=== PATIENT | female | born 1985 | race Caucasian/White ===

== ENCOUNTER 2024-11-20 18:59 | Emergency (ER) | payer BC, SELFPAY ==
[2024-11-20] VITALS (8 sets, daily range): BP systolic 102–131; BP diastolic 75–88; PULSE 80–114; RESP 13–26; TEMP 37.1; O2SAT 95–100
--- NOTE | 2024-11-20 19:13 | ED.OVERDOSE ---
HPI - Overdose General Chief Complaint: Overdose Stated Complaint: overdose History of Present Illness HPI Narrative: 39-year-old female with no significant past medical history aside from hypothyroidism. She presents to the emergency department after ingesting approximately 30-40 mg of THC edibles. Patient has never used marijuana before or any other substances. Denies any alcohol intake. She states that she feels off and is visibly shaky. States that she was with family members and went to dinner before she had any the edible. Denies any drinking today. She was otherwise in her normal state of health. Denies any pain, shortness is mild nauseousness but no headache, abdominal pain, back pain. Denies chance of . Related Data Allergies Allergy/AdvReac Type Severity Reaction Status Date / Time No Known Allergies Allergy Verified 11/21/24 00:13 Review of Systems Review of Systems: As reviewed above in [facility] Social History Social History Substance use type: marijuana Exam Narrative: GENERAL: Anxious and tremulous but not any acute distress, awake and answering questions HEAD: [Normocephalic, atraumatic.] EYES: [PERRLA and EOMI.] ENT: Nares clear, no rhinorrhea or epistaxis. Mucous membranes moist. NECK: Supple. CHEST: [Clear to auscultation. No respiratory distress.] HEART: [Regular rate and rhythm]. No murmur heard. [Normal peripheral pulses.] ABDOMEN: [Soft, nondistended], [nontender], [No rigidity or guarding] EXTREMITIES: Normal range of motion. [No edema.] SKIN: Warm, dry, no rash. NEURO: [No focal deficits]. Alert and oriented [x3.] PSYCH: Anxious and tremulous Course Vital Signs Vital signs: Vital Signs Pulse Rate 114 H 11/20/24 18:57 Respiratory Rate 16 11/20/24 18:57 Pulse Oximetry 99 11/20/24 18:57 Oxygen Delivery Room Air 11/20/24 18:57 Temperature 36.9 C 11/21/24 01:14 Pulse Rate 85 11/21/24 01:14 Respiratory Rate 14 11/21/24 01:14 Blood Pressure 122/78 11/21/24 01:14 Pulse Oximetry 100 11/21/24 01:14 Oxygen Delivery Room Air 11/20/24 19:15 MDM - Overdose MDM Narrative Medical decision making narrative: 39-year-old female with history of hypothyroidism presenting to the emergency department after ingesting 30-40 mg of THC edible. She has never used marijuana type products before. No drinking today. Was otherwise in her normal state of health. She is anxious and tremulous but not any distress. Mildly tachycardic, no other vital concerns. Normal blood pressure, no fever, 99% on room air. Patient is awake and answering questions. She was given a fluid bolus and Zofran laboratory studies were obtained as well as urinalysis and drug screen, urine test. Patient will be monitored here for symptom improvement with symptomatic management as needed. Poison Control was contacted by nursing staff for this and there were no recommendations aside from checking a point care glucose and watchful waiting. Patient's laboratory studies show hemoconcentration with elevated platelets and white count without any signs of infection. Patient was given 2 L of fluid hydration and her vitals have normalized without any tachycardia. Electrolytes are unremarkable. Normal glucose. Normal LFTs. Normal TSH. Urinalysis with no or signs of infection or blood. UDS positive for cannabinoids. Alcohol, salicylates and Tylenol are negative. EKG reviewed shows sinus tachycardia with poor waveform. Patient was up and ambulatory to the bathroom and all her symptoms have significantly improved. Discussed with the patient and family that symptoms might still last for several hours based on the dose but there is no toxic ingestion here and she can be safely observed at home without any need for hospitalization. Patient and family comfortable with the plan and safely discharged home after brief observation for several hours here in the ED without issue. Medical Records Attestation: I reviewed the patient's medical records. Lab Data Attestation: I reviewed the patient's lab results. 11/20/24 19:20 11/20/24 19:19 Labs: Lab Results 11/20/24 11/20/24 11/20/24 Range/Units 19:19 19:20 19:22 WBC 12.0 H (4.5-10.0) K/mm3 RBC 4.74 (4.2-5.4) M/mm3 Hgb 11.4 L (12.0-15.0) g/dL Hct 38.0 (37.0-47.0) % MCV 80.2 (80-100) fl MCH 24.1 L (26-34) pg MCHC 30.0 L (32-36) g/dl RDW 15.1 H (11.5-14.5) % Plt Count 492 H (150-375) k/mm3 MPV 10.3 (7.4-10.4) fl Immature Gran % (Auto) 0.5 (0-0.5) % Neut % (Auto) 57.6 (45.5-73.1) % Lymph % (Auto) 31.0 (18.3-44.2) % Rolette % (Auto) 8.9 H (2.6-8.5) % Eos % (Auto) 1.5 (0-4.4) % Baso % (Auto) 0.5 (0.2-1.2) % Lymph # (Auto) 3.73 H (0.9-3.2) K/mm3 Rolette # (Auto) 1.1 H (0.1-0.6) K/mm3 Eos # (Auto) 0.2 (0-0.3) K/mm3 Baso # (Auto) 0.1 (0.0-0.1) K/mm3 Abs Immat Gran (auto) 0.06 H (0.00-0.031) K/mm3 Absolute Neuts (auto) 6.9 H (1.3-6.7) K/mm3 Absolute Nucleated RBC 0.000 (0.0-0.012) K/mm3 Nucleated RBC % 0.0 (0.0-0.2) % Sodium 138 (137-145) mmol/L Potassium 3.6 (3.4-5.0) mmol/L Chloride 104 (98-107) mmol/L Carbon Dioxide 23 (22-30) mmol/L Anion Gap 11 (4-12) mmol/L BUN 13 (7-17) mg/dL Creatinine 0.88 (0.7-1.0) mg/dL Estim Creat Clear Calc Not Reportable Estimated GFR > 60 (59 - ) Glucose 130 H (65-110) mg/dL Calcium 9.1 (8.4-10.2) mg/dL Total Bilirubin 0.2 (0.2-1.3) mg/dL AST 26 (14-36) U/L ALT 17 (6-35) U/L Alkaline Phosphatase 88 (38-126) U/L Total Protein 7.4 (6.3-8.2) g/dL Albumin 4.4 (3.5-5.1) g/dL TSH 0.519 (0.465-4.680) uIU/mL Urine Color (Yellow) Urine Appearance (Clear) Urine pH (5.0-9.0) Ur Specific [place] (1.001-1.035) Urine Protein (Negative) mg/dL Urine Glucose (UA) (Negative) mg/dL Urine Ketones (Negative) mg/dL Ur Blood (Man) (Negative) Urine Nitrate (Negative) Urine Bilirubin (Negative) Urine Urobilinogen (<2.0) mg/dL Add Ur Microanalysis Leukocyte Esterase Rfl (Negative) YAMEL/UL Urine RBC (0-2) /hpf Urine WBC (0-3) /hpf Ur Squamous Epith Cells (Few) /hpf Urine Bacteria /hpf Urine Casts POC Urine HCG, Qual Negative (Negative) Salicylates < 1.0 L (2-20) mg/dL Urine Opiates Screen (Negative) Urine Methadone Screen (Negative) Acetaminophen < 10 L (10-30) ug/mL Ur Barbiturates Screen (Negative) Ur Phencyclidine Scrn (Negative) Ur Amphetamine Screen (Negative) U Benzodiazepines Scrn (Negative) Urine Cocaine Screen (Negative) U Cannabinoids Screen (Negative) Ethyl Alcohol < 10 (<10) mg/dL 11/20/24 Range/Units 19:28 WBC (4.5-10.0) K/mm3 RBC (4.2-5.4) M/mm3 Hgb (12.0-15.0) g/dL Hct (37.0-47.0) % MCV (80-100) fl MCH (26-34) pg MCHC (32-36) g/dl RDW (11.5-14.5) % Plt Count (150-375) k/mm3 MPV (7.4-10.4) fl Immature Gran % (Auto) (0-0.5) % Neut % (Auto) (45.5-73.1) % Lymph % (Auto) (18.3-44.2) % Rolette % (Auto) (2.6-8.5) % Eos % (Auto) (0-4.4) % Baso % (Auto) (0.2-1.2) % Lymph # (Auto) (0.9-3.2) K/mm3 Rolette # (Auto) (0.1-0.6) K/mm3 Eos # (Auto) (0-0.3) K/mm3 Baso # (Auto) (0.0-0.1) K/mm3 Abs Immat Gran (auto) (0.00-0.031) K/mm3 Absolute Neuts (auto) (1.3-6.7) K/mm3 Absolute Nucleated RBC (0.0-0.012) K/mm3 Nucleated RBC % (0.0-0.2) % Sodium (137-145) mmol/L Potassium (3.4-5.0) mmol/L Chloride (98-107) mmol/L Carbon Dioxide (22-30) mmol/L Anion Gap (4-12) mmol/L BUN (7-17) mg/dL Creatinine (0.7-1.0) mg/dL Estim Creat Clear Calc Estimated GFR (59 - ) Glucose (65-110) mg/dL Calcium (8.4-10.2) mg/dL Total Bilirubin (0.2-1.3) mg/dL AST (14-36) U/L ALT (6-35) U/L Alkaline Phosphatase (38-126) U/L Total Protein (6.3-8.2) g/dL Albumin (3.5-5.1) g/dL TSH (0.465-4.680) uIU/mL Urine Color Yellow (Yellow) Urine Appearance Clear (Clear) Urine pH 5.5 (5.0-9.0) Ur Specific [place] 1.023 (1.001-1.035) Urine Protein Negative (Negative) mg/dL Urine Glucose (UA) Negative (Negative) mg/dL Urine Ketones Trace H (Negative) mg/dL Ur Blood (Man) Negative (Negative) Urine Nitrate Negative (Negative) Urine Bilirubin Negative (Negative) Urine Urobilinogen 1.0 (<2.0) mg/dL Add Ur Microanalysis Reviewed Leukocyte Esterase Rfl Negative (Negative) YAMEL/UL Urine RBC 0-2 (0-2) /hpf Urine WBC 0-5 (0-3) /hpf Ur Squamous Epith Cells Few (Few) /hpf Urine Bacteria None seen /hpf Urine Casts 0-2 POC Urine HCG, Qual (Negative) Salicylates (2-20) mg/dL Urine Opiates Screen Negative (Negative) Urine Methadone Screen Negative (Negative) Acetaminophen (10-30) ug/mL Ur Barbiturates Screen Negative (Negative) Ur Phencyclidine Scrn Negative (Negative) Ur Amphetamine Screen Negative (Negative) U Benzodiazepines Scrn Negative (Negative) Urine Cocaine Screen Negative (Negative) U Cannabinoids Screen Positive A (Negative) Ethyl Alcohol (<10) mg/dL Discharge Plan Discharge Clinical Impression: Cannabis intoxication Patient Disposition: Home Condition: Stable Instructions: Antibiotic Form Patient Language: Paraguayan Prescriptions: New ondansetron 4 mg tablet,disintegrating 4 mg PO Q8H PRN (Reason: nausea and vomiting) Qty: 10 0RF ondansetron 4 mg tablet,disintegrating 4 mg PO Q8H PRN (Reason: nausea and vomiting) Qty: 10 0RF Follow-up/Referrals: UNKNOWN,DOCTOR [Primary Care Provider] - Time of Disposition: 00:22
--- NOTE | 2024-11-20 19:17 | ECG_ITS ---
[facility] [address] [place] [id number] Electrocardiograph Report Signed Patient: Silvina Camargo : 1985 MR#: [id number] Age: 39 Acct:[id number] Loc: [facility] ADM Date: 11/20/[address]: Ordering Physician: Joss Lopez MD Date of Service: 11/20/24 Procedure(s): CA 12 lead EKG Accession Number(s): [id number] cc: ~ Test Date: 2024-11-20 19:17:35 Measurements Intervals [place] Rate: 104 P: 42 NC: 129 QRS: 56 QRSD: 94 T: 35 QT: 352 QTc: 464 Interpretive Statements SINUS TACHYCARDIA BORDERLINE ST-T WAVE ABNORMALITY- ANT/INF LEADS BASELINE ARTIFACT- I, II, III, AVR, AVL, AVF, V1-V6 BORDERLINE ECG No previous ECG available for comparison Electronically Signed On 11-22-2024 16:00:25 CDT by Mikey Tinsley D.O.
[2024-11-20] MEDS: LACTATED RINGERS 1,000 ML 999 ML IV CONT ×2 (19:21→20:43)
[2024-11-20] MEDS: ONDANSETRON INJ 4 MG/2 ML VIAL IV PUSH (19:21)
[2024-11-20 19:27] LABS: Basophils Absolute Auto 0.1 K/mm3 (0.0-0.1); Basophils Percent Auto 0.5 % (0.2-1.2); Eosinophils Absolute Auto 0.2 K/mm3 (0-0.3); Eosinophils Percent Auto 1.5 % (0-4.4); Hemoglobin 11.4 g/dL (12.0-15.0); Immature Granulocyte Absolute 0.06 K/mm3 (0.00-0.031); Immature Granulocyte Percent A 0.5 % (0-0.5); Lymphocytes Absolute Auto 3.73 K/mm3 (0.9-3.2); Mean Corpuscular Hemoglobin 24.1 pg (26-34); Mean Corpuscular Volume 80.2 fl (80-100); Mean Platelet Volume 10.3 fl (7.4-10.4); Monocytes Absolute Auto 1.1 K/mm3 (0.1-0.6); Monocytes Percent Auto 8.9 % (2.6-8.5); Neutrophils Absolute Auto 6.9 K/mm3 (1.3-6.7); Neutrophils Percent Auto 57.6 % (45.5-73.1); Platelet Count Result 492 k/mm3 (150-375); Red Blood Count 4.74 M/mm3 (4.2-5.4); Red Cell Distribution Width 15.1 % (11.5-14.5)
--- NOTE | 2024-11-20 19:30 | PC.NURSE ---
Pt reports pt carries an epi pen with her due to idiopathic allergies.
[2024-11-20 19:32] LABS: BEDSIDEPREGUCG Negative (Negative)
[2024-11-20 19:37] LABS: Acetaminophen < 10 ug/mL (10-30); Ethanol < 10 mg/dL (<10); Salicylate < 1.0 mg/dL (2-20)
[2024-11-20 19:41] LABS: Alanine Aminotransferase 17 U/L (6-35); Albumin Level 4.4 g/dL (3.5-5.1); Alkaline Phosphatase 88 U/L (38-126); Anion Gap 11 mmol/L (4-12); Aspartate Amino Transferase 26 U/L (14-36); Bilirubin,Total 0.2 mg/dL (0.2-1.3); Blood Urea Nitrogen 13 mg/dL (7-17); Calcium 9.1 mg/dL (8.4-10.2); Carbon Dioxide 23 mmol/L (22-30); Chloride 104 mmol/L (98-107); Estimated Glomerular Filt Rate > 60; Glucose 130 mg/dL (65-110); Potassium 3.6 mmol/L (3.4-5.0); Sodium 138 mmol/L (137-145); Total Protein 7.4 g/dL (6.3-8.2)
--- NOTE | 2024-11-20 19:51 | PC.NURSE ---
This RN spoke to Alana QUIROGA from [place] poison control [phone] and was told all that she would recommend is checking pt glucose and support of care. Alana QUIROGA also stated that the 30 mg of THC the pt ingested will take 6-8 hours and pt does not have to be in hospital the entirety of the time as long as another adult at home could monitor. RN stated she will fax over the report.
[2024-11-20 19:54] LABS: Bacteria Urine None Seen /hpf; Need Manual Microscopic Reviewed; Non Pathogenic Casts 0-2; RBC Urine 0-2 /hpf (0-2); Squamous Epithelial Cell Urine Few /hpf (Few); WBC Urine 0-5 /hpf (0-3)
[2024-11-20 20:01] LABS: Amphetamine Screen Urine Negative (Negative); Barbiturate Screen Urine Negative (Negative); Benzodiazepines Screen Urine Negative (Negative); Cannabinoid Screen Urine Positive (Negative); Cocaine Screen Urine Negative (Negative); Methadone Screen Urine Negative (Negative); Opiate Screen Urine Negative (Negative); Phencyclidine Screen Urine Negative (Negative)
[2024-11-20 20:06] LABS: Add Urine Microscopic? NO; Appearance Urine Clear (Clear); Bilirubin Urine Negative (Negative); Blood Urine Negative (Negative); Color Urine Yellow (Yellow); Glucose Urine UA Negative (Negative); Ketones Urine Trace mg/dL (Negative); Leukocyte Esterase Ur Negative LEU/UL (Negative); Nitrate Urine Negative (Negative); Protein Urine Negative (Negative); Specific Grav Ur 1.023 (1.001-1.035); pH Urine 5.5 (5.0-9.0)
--- OUTSIDE RECORDS SUMMARY | 2024-11-20 20:07 | XMS_ITS | Encounter Summary ---
Author Organization [facility] 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 - [employer] Primary Care Provider Encounter Details Date Type Department Care Team (Late st Contact Info) Description 07/27/2024 FollowUp Telephone Encounter [facility] [address] [place] [address] [place] [id number] Lynsey Borja Social History Tobacco Use Types Packs/Day Years Used Date Smoking Tobacco: Never Smokeless Tobacco: Never Alcohol Use Standard Drinks/Week Comments Yes 0 (1 standard drink = 0.6 oz pur e alcohol) rarely Comments No Sex and Gender Information Value Date Recorded Sex Assigned at Not on file Legal Sex Female 5:56 AM EST Gender Identity Not on file Sexual Orientation Not on file documented as of this encounter Plan of Treatment Not on file documented as of this encounter Visit Diagnoses Not on filedocumented in this encounter Care Teams Technical Aid Relationship Specialty Start Date End Date Allison Horton APRN - NP [address] [place] [address] [place] [phone] PCP - General Certified Nurse Practitioner 03/04/23 documented as of this encounter
--- OUTSIDE RECORDS SUMMARY | 2024-11-20 20:07 | XMS_ITS | Clinical Summary ---
Author Organization [facility] Address [address] [place] [address] Care Team Providers Care Wrap Checker Name Role Phone Allison Horton APRN - CARDROOM ATTENDANT Primary Care Provider Allergies Active Allergy Reactions Criticality Noted Date Comments Pumpkin Seed Anaphylaxis High 12/23/2023 Medications rizatriptan (MAXALT) 10 MG tablet Take 1 tablet by mouth once as needed for Migraine May repeat in 2 hours if needed 27 tablet 1 0 Active esomeprazole (NEXIUM) 40 MG delayed release capsule TAKE 1 CAPSULE EVERY MORNING BEFORE BREAKFAST 90 capsule 3 4 Active valACYclovir (VALTREX) 1 g tablet TAKE 1 TABLET DAILY 90 tablet 3 4 Active levothyroxine (SYNTHROID) 75 MCG tablet Take 1 tablet by mouth daily 90 tablet 1 4 Active pantoprazole (PROTONIX) 20 MG tabletIndication s:Gastroesophage al reflux disease without esophagitis Take 1 tablet by mouth every morning (before breakfast) 90 tablet 1 4 Active EPINEPHrine (EPIPEN 2-DORA) 0.3 MG/0.3ML SOAJ injectionIndicat ions:Anaphylaxis , subsequent encounter Inject 0.3 mLs into the muscle once for 1 dose Use as directed for allergic reaction 6 each 3 4 Active levothyroxine (SYNTHROID) 125 MCG tablet Take 1 tablet by mouth daily 90 tablet 3 5 Active escitalopram (LEXAPRO) 10 MG tablet Take 1 tablet by mouth daily 90 tablet 3 5 Active omalizumab (XOLAIR) 150 MG/ML SOAJ injectionIndicat ions:Anaphylaxis , subsequent encounter Inject 150 mg into the skin every 28 days 1 mL 5 Active Active Problems Problem Noted Date Diagnosed Date At high risk for breast cancer 08/29/2022 Encounters Date Type Department Care Team Description 09/30/2024 Orders Only [facility] [address] [place] [address] Gottmvenkata Allison C, MEDICAL DEVICE SALES REPRESENTATIVE - CARDROOM ATTENDANT 09/30/2024 Orders Only [facility] [address] [place] [address] Gottman Allison C, MEDICAL DEVICE SALES REPRESENTATIVE - CARDROOM ATTENDANT 09/30/2024 Orders Only [facility] [address] [place] [address] Gottman Allison C, MEDICAL DEVICE SALES REPRESENTATIVE - CARDROOM ATTENDANT 09/30/2024 Orders Only [facility] [address] [place] [address] Gottman Allison C, MEDICAL DEVICE SALES REPRESENTATIVE - CARDROOM ATTENDANT 09/30/2024 Orders Only [facility] [address] [place] [address] Gottman Allison C, MEDICAL DEVICE SALES REPRESENTATIVE - CARDROOM ATTENDANT 09/30/2024 Orders Only [facility] [address] [place] [address] Gottman Allison C, MEDICAL DEVICE SALES REPRESENTATIVE - CARDROOM ATTENDANT 09/30/2024 Orders Only [facility] [address] [place] [address] Gottman Allison C, MEDICAL DEVICE SALES REPRESENTATIVE - CARDROOM ATTENDANT 09/30/2024 Orders Only [facility] [address] [place] [address] Gottman Allison C, MEDICAL DEVICE SALES REPRESENTATIVE - CARDROOM ATTENDANT 08/24/2024 Orders Only [facility] [address] [place] [address], [place] [address] Harrison Calhoun APRN - CNM Anaphylaxis, subsequent encounter (Primary Dx) 08/24/2024 Telephone [facility] [address] [place] [address], [place] [address] Harrison Calhoun APRN - ALMA from Last 3 Months Immunizations Immunization Administration Dates Next Due Influenza Virus Vaccine 04/12/2021 Influenza, AFLURIA, FLUZONE, (age3 y+), IM, Trivalent MDV, 0.5mL 03/26/2022 Influenza, Split (Incl. Purified Surface Antigen ) 03/22/2019 TDaP, ADACEL (age 10y-64y), BOOSTRIX (age 10y+), IM, 0.5mL 06/23/2023 Family History Medical History Relation Name Comments Hypertension Father Breast Cancer Maternal Aunt Breast Cancer Maternal Grandmother Elevated Lipids Mother Other Mother prophlatic mast ectomy, neg BRCA Relation Name Status Comments Father Alive Maternal Aunt Maternal Grandmother Mother Alive Social History Tobacco Use Types Packs/Day Years Used Date Smoking Tobacco: Never Smokeless Tobacco: Never Tobacco Cessation:Counseling Given: Not Answered Alcohol Use Standard Drinks/Week Comments Yes 0 (1 standard drink = 0.6 oz pur e alcohol) rarely Comments No Sex and Gender Information Value Date Recorded Sex Assigned at Not on file Legal Sex Female 5:56 AM EST Gender Identity Not on file Sexual Orientation Not on file Last Filed Vital Signs Vital Sign Reading Time Taken Comments Blood Pressure 120/96 08/14/2022 8:29 AM [facility] Pulse 103 08/29/2022 2:53 PM CDT Temperature 37.2 C (99 F) 08/29/2022 2:53 PM CDT Respiratory Rate 16 09/10/2020 4:36 PM CDT Oxygen Saturation 99% 08/29/2022 2:53 PM CDT Inhaled Oxygen Concentration - - Weight 70.8 kg (156 lb) 08/29/2022 2:53 PM CDT Height 165.1 cm (5' 5) 12/23/2023 8:16 AM CDT Body Mass Index 25.96 08/29/2022 2:53 PM CDT Plan of Treatment Health Maintenance Due Date Last Done Comments Depression Screen 1998 HIV screen 2001 Hepatitis C screen 2004 Hepatitis B vaccine (1 of 3 - 19+ 3-dose series) 2005 COVID-19 Vaccine ( season) 2024 07/15/2020, 06/17/2020 Flu vaccine (Season Ended) 01/14/202503/27, 03/26/2023, 03/26/2022, Additional history exists Pap smear 12/22/2026 12/23/2023, 03/06/2022, 08/08/2021, Additional history exists Cervical cancer screen 12/22/2028 HPV (without or with Pap) 12/22/20282023, 08/14/2022, 04/15/2019 DTaP/Tdap/Td vaccine (2 - Td or Tdap) 06/23/2033 06/23/2023 Varicella vaccine Completed 05/12/2023, 04/09/2023 Diabetes screen Discontinued 09/30/2024, 08/14, 08/14/2022, Additional history exists HPV vaccine Aged Out No longer eligi ble based on patient's age to complete this topic Hepatitis A vaccine Aged Out No longe r eligible based on patient's age to complete this topic Hib vaccine Aged Out No longer eligi ble based on patient's age to complete this topic Meningococcal (ACWY) vaccine Aged Out No longer eligible based on patient's age to complete this topic Meningococcal B vaccine Aged Out No l onger eligible based on patient's age to complete this topic Pneumococcal 0-49 years Vaccine Aged Out No longer eligible based on patient's age to complete this topic Polio vaccine Aged Out No longer elig ible based on patient's age to complete this topic Procedures Procedure Name Priority Date/Time Associated Diagnosis Comments LIPID PANEL Routine 09/30/2024 7:47 AM CDT T4, FREE Routine 09/30/2024 7:47 AM CDT TSH Routine 09/30/2024 7:47 AM CDT COMPREHENSIVE METABOLIC PANEL Routine 09/30/2024 7:47 AM CDT VITAMIN D 25 HYDROXY Routine 09/30/2024 7:47 AM CDT HEMOGLOBIN A1C Routine 09/30/2024 7:47 AM CDT CBC WITH AUTO DIFFERENTIAL Routine 09/30/2024 7:47 AM CDT DRUG SCRN, BUPRENORPHINE Routine 09/30/2024 7:47 AM CDT HUMAN PAPILLOMAVIRUS (HPV) DNA PROBE THIN PREP HIGH RISK Routine 12/23/2023 7:44 AM CDT Screening for HPV (human papillomavirus) PAP SMEAR Routine 12/23/2023 7:44 AM CDT Well woman exam with routine gynecological exam Cervical cancer screening Screening for HPV (human papillomavirus) from Last 3 Months or Most Recently Relevant to Health Maintenance Results * Drug SCRN, Buprenorphine (09/30/2024 7:47 AM CDT) Amphetamine Screen, Ur Negative Negative <500 ng/mL 09/30/2024 9:20 AM [facility] Barbiturate Screen, Ur Negative Negative < 200 ng/mL 09/30/2024 9:20 AM [facility] Benzodiazepine Screen, Urine Negative Negative <150 ng/mL 09/30/2024 9:20 AM [facility] Cannabinoid Scrn, Ur Negative Negative <50 ng/mL 09/30/2024 9:20 AM [facility] Cocaine Metabolite Screen, Urine Negative Negative <150 ng/mL 09/30/2024 9:20 AM [facility] Opiate Screen, Urine Negative Negative < 100 ng/mL 09/30/2024 9:20 AM [facility] Phencyclidine (PCP), Screen, Urine Negative Negative <25 ng/mL 09/30/2024 9:20 AM [facility] Methadone Screen, Urine Negative Negative <200 ng/mL 09/30/2024 9:20 AM [facility] Tricyclic Antidepressants, Urine Negative Negative <300 ng/mL 09/30/2024 9:20 AM [facility] Oxycodone Urine Negative Negative <100 ng/mL 09/30/2024 9:20 AM [facility] Buprenorphine Urine Negative Negative <10 ng/mL 09/30/2024 9:20 AM [facility] Methamphetamine, Urine Negative Negative <500 ng/mL 09/30/2024 9:20 AM [facility] FENTANYL SCREEN, URINE Negative Negative <5 ng/mL 09/30/2024 8:20 AM T [facility] Drug Screen Comment: see below 09/30/2024 7:47 AM [facility] Comment: This method is an uncomfirmed screening test to detect only these drug classes in urine as part of a medical workup. Confirmatory testing by another method should be ordered if clinically indicated. Unconfirmed screening results must not be used for non-medical purposes (eg, employment testing). 09/30/2024 7:47 AM CDT 09/30/2024 8:54 AM T [facility] - 09/30/2024 9:23 AM CDT [phone] allison horton-oriental orthodox Allison Horton MEDICAL DEVICE SALES REPRESENTATIVE - CARDROOM ATTENDANT URINE ORDERABLES Final Result [facility] [address] [place] [address], [facility] [phone] * (ABNORMAL) CBC with Auto Differential (09/30/2024 7:47 AM CDT) WBC 5.7 4.8 - 10.8 K/uL 09/30/2024 9:10 AM [facility] RBC 4.29 4.20 - 5.40 M/uL 09/30/2024 9:10 AM [facility] Hemoglobin 10.8(L) 12.0 - 16.0 g/dL 09/30/2024 9:10 AM [facility] Hematocrit 35.6(L) 37.0 - 47.0 % 09/30/2024 9:10 AM [facility] MCV 83.0 81.0 - 99.0 fL 09/30/2024 9:10 AM [facility] MCH 25.2(L) 27.0 - 31.0 pg 09/30/2024 9:10 AM [facility] MCHC 30.3(L) 33.0 - 37.0 g/dL 09/30/2024 9:10 AM [facility] RDW 14.1 11.5 - 14.5 % 09/30/2024 9:10 AM [facility] Platelets 352 130 - 400 K/uL 09/30/2024 9:10 AM [facility] MPV 10.6 9.4 - 12.3 fL 09/30/2024 9:10 AM [facility] Neutrophils % 45.1(L) 50.0 - 65.0 % 09/30/2024 9:10 AM [facility] Lymphocytes % 40.0 20.0 - 40.0 % 09/30/2024 9:10 AM [facility] Monocytes % 10.9(H) 0.0 - 10.0 % 09/30/2024 9:10 AM [facility] Eosinophils % 2.6 0.0 - 5.0 % 09/30/2024 9:10 AM [facility] Basophils % 0.9 0.0 - 1.0 % 09/30/2024 9:10 AM [facility] Neutrophils Absolute 2.6 1.5 - 7.5 K/uL 09/30/2024 9:10 AM [facility] Immature Granulocytes # 0.0 K/uL 09/30/2024 9:10 AM [facility] Lymphocytes Absolute 2.3 1.1 - 4.5 K/uL 09/30/2024 9:10 AM [facility] Monocytes Absolute 0.60 0.00 - 0.90 K/uL 09/30/2024 9:10 AM CDT [facility] Eosinophils Absolute 0.20 0.00 - 0.60 K/uL 09/30/2024 9:10 AM CDT [facility] Basophils Absolute 0.10 0.00 - 0.20 K/uL 09/30/2024 9:10 AM CDT [facility] 09/30/2024 7:47 AM CDT 09/30/2024 8:57 AM CDT [facility] - 09/30/2024 9:10 AM CDT [phone] allison bravo Allison Horton MEDICAL DEVICE SALES REPRESENTATIVE - CARDROOM ATTENDANT HEMATOLOGY ORDERABLES F inal Result Performing Organization Address [facility] Co de Phone Number [facility] [address] [phone] * (ABNORMAL) Vitamin D 25 Hydroxy (09/30/2024 7:47 AM CDT) Vit D, 25-Hydroxy 23.7(L) >=30 ng/mL 09/30/2024 8:40 AM CDT [facility] Comment: <=20 ng/mL.............Deficient 21-29 ng/mL...........Insufficient >=30 ng/mL..........Sufficient 09/30/2024 7:47 AM CDT 09/30/2024 8:56 AM CDT [facility] - 09/30/2024 9:42 AM CDT [phone] allison bravo Allison Horton MEDICAL DEVICE SALES REPRESENTATIVE - CARDROOM ATTENDANT CHEMISTRY ORDERABLES Fi nal Result Performing Organization Address [facility] de Phone Number [facility] [address] [phone] * (ABNORMAL) TSH (09/30/2024 7:47 AM CDT) TSH 0.087(L) 0.270 - 4.200 uIU/mL 09/30/2024 8:31 AM CDT [facility] 09/30/2024 7:47 AM CDT 09/30/2024 8:56 AM CDT [facility] - 09/30/2024 9:42 AM CDT [phone] allison bravo Allison Horton MEDICAL DEVICE SALES REPRESENTATIVE - CARDROOM ATTENDANT CHEMISTRY ORDERABLES Fi nal Result Performing Organization Address City/[facility]/ZIP Co de Phone Number [facility] [address] [place] [address] * T4, Free (09/30/2024 7:47 AM CDT) Pathologist [facility] T4 Free 1.62 0.93 - 1.70 ng/dL 09/30/2024 8:32 AM CDT [facility] 09/30/2024 7:47 AM CDT 09/30/2024 8:56 AM CDT [facility] - 09/30/2024 9:42 AM CDT [phone] allison bravo us Allison Horton MEDICAL DEVICE SALES REPRESENTATIVE - CARDROOM ATTENDANT CHEMISTRY ORDERABLES Fi nal Result [facility] [address] [phone] * Hemoglobin A1C (09/30/2024 7:47 AM CDT) Pathologist [facility] Hemoglobin A1C 5.5 4.0 - 5.6 % 09/30/2024 8:18 AM CDT [facility] Comment: Comment: Diagnosis of Diabetes: > or = 6.5% Increased risk of diabetes (Prediabetes): 5.7-6.4% Glycemic Control: Non Adults: <7.0% : <6.0% 09/30/2024 7:47 AM CDT 09/30/2024 8:57 AM CDT Narrative [facility] - 09/30/2024 9:20 AM CDT [phone] allison bravo Allison Horton MEDICAL DEVICE SALES REPRESENTATIVE - CARDROOM ATTENDANT CHEMISTRY ORDERABLES Fi nal Result [facility] [address] [place] [address], [facility] [phone] * (ABNORMAL) Lipid Panel (09/30/2024 7:47 AM CDT) [facility] Cholesterol, Total 178 0 - 199 mg/dL 09/30/2024 8:34 AM [facility] Comment: <160 MG/DL=OPTIMAL 160-199 MG/DL= DESIRABLE 200-239 MG/DL=BORDERLINE-INCREASED RISK OF ATHEROSCLEROTIC CARDIOVASCULAR DISEASE > OR = 240 MG/DL-ASSOCIATED WITH AN INCREASED RISK OF ATHROSCLEROTIC CARDIOVASCULAR DISEASE Triglycerides 36 0 - 149 mg/dL 09/30/2024 8:34 AM [facility] HDL 67(H) 40 - 60 mg/dL 09/30/2024 8:34 AM [facility] Comment: An HDL cholesterol less than 40 mg/dL is low and constitutes a coronary heart disease risk factor. An HDL cholesterol greater than 60 mg/dL is a negative risk factor for coronary heart disease. LDL Cholesterol 104(H) <100 mg/dL 09/30/2024 8:34 AM [facility] Comment: <100 MG/DL=OPITIMAL 100-129 MG/DL=DESIRABLE 130-159 MG/DL BORDERLINE=INCREASED RISK OF ATHEROSCLEROTIC CARDIOVASCULAR DISEASE > OR = 160 MG/DL=ASSOCIATED WITH AN INCREASE RISK OF ATHEROSCLEROTIC CARDIOVASCULAR DISEASE 09/30/2024 7:47 AM CDT 09/30/2024 8:56 AM CDT Narrative [facility] - 09/30/2024 9:42 AM CDT [phone] allison horton-oriental orthodox Allison Horton MEDICAL DEVICE SALES REPRESENTATIVE - CARDROOM ATTENDANT CHEMISTRY ORDERABLES Fi nal Result [facility] [address] [place] [address], [facility] [phone] * (ABNORMAL) Comprehensive Metabolic Panel (09/30/2024 7:47 AM CDT) Sodium 139 136 - 145 mmol/L 09/30/2024 8:17 AM [facility] Potassium 3.9 3.5 - 5.1 mmol/L 09/30/2024 8:17 AM [facility] Chloride 104 98 - 107 mmol/L 09/30/2024 8:17 AM [facility] CO2 26 22 - 29 mmol/L 09/30/2024 8:34 AM [facility] Anion Gap 9 8 - 16 mmol/L 09/30/2024 9:42 AM [facility] Glucose 85 70 - 99 mg/dL 09/30/2024 8:34 AM [facility] BUN 11 6 - 20 mg/dL 09/30/2024 8:34 AM [facility] Creatinine 0.8 0.5 - 0.9 mg/dL 09/30/2024 8:34 AM [facility] Est, Glom Filt Rate >90 >60 09/30/2024 8:34 AM [facility] Comment: Pediatric calculator link https://www.kidney.org/professionals/kdoqi/gfr_calculatorped Effective Mar 18, 2022 These results are not intended for use in patients <18 years of age. eGFR results are calculated without a race factor using the 2020 CKD-EPI equation. Careful clinical correlation is recommended, particularly when comparing to results calculated using previous equations. The CKD-EPI equation is less accurate in patients with extremes of muscle mass, extra-renal metabolism of creatinine, excessive creatinine ingestion, or following therapy that affects renal tubular secretion. Calcium 9.4 8.6 - 10.0 mg/dL 09/30/2024 8:34 AM T [facility] Total Protein 6.7 6.4 - 8.3 g/dL 09/30/2024 8:34 AM T [facility] Albumin 4.2 3.5 - 5.2 g/dL 09/30/2024 8:33 AM T [facility] Total Bilirubin 0.4 0.2 - 1.2 mg/dL 09/30/2024 8:34 AM [facility] Alkaline Phosphatase 110(H) 35 - 104 U/L 09/30/2024 8:33 AM T [facility] ALT 13 10 - 35 U/L 09/30/2024 8:33 AM [facility] AST 15 10 - 35 U/L 09/30/2024 8:33 AM [facility] 09/30/2024 7:47 AM CDT 09/30/2024 8:56 AM T [facility] - 09/30/2024 9:42 AM CDT [phone] allison horton-oriental orthodox Allison Horton MEDICAL DEVICE SALES REPRESENTATIVE - CARDROOM ATTENDANT CHEMISTRY ORDERABLES Fi nal Result [facility] [address] [phone] * Human papillomavirus (HPV) DNA probe thin prep high risk (12/23/2023 7:44 AM CDT) HPV Genotype 16 Not Detected Not Detected 12/26/2023 10:59 AM CDT [facility] HPV Type 18 Not Detected Not Detected 12/26/2023 10:59 AM CDT [facility] HPVOH (Other Types) Not Detected Not Detected 12/26/2023 10:59 AM CDT [facility] Comment:*Includes 31,33,35,3 9,45,51,52,56,58,59,66,68 genotypes HPV Comment See below 12/23/2023 8:44 AM CDT [facility] Comment: This is information only. See above for results. HPV other genotypes: 31,33,35,39,45,51,52,56,58,59,66,68 The Aureliano Claudia HPV Test is a qualitative in-vitro test for the detection of Human Papillomavirus that provides specific genotyping information for HPV Types 16 and 18, while concurrently detecting 12 other high-risk HPV types 31,33,35, 39,45,51,52,56,58,59,66,68 in a pooled result. The test utilizes amplification of target DNA by Polymerase Chain Reaction (PCR) and nucleic acid hybridization. . Endo 12/23/2023 7:44 AM CDT 12/24/2023 7:20 AM CDT us Harrison Calhoun APRN - CNM HEMATOLOGY ORDERABLES Final Result [facility] [address] [place] [address] [facility] [address] [phone] * PAP SMEAR (12/23/2023 7:44 AM CDT) Endo 12/23/2023 7:44 AM CDT 12/24/2023 7:23 AM CDT Narrative [facility] - 12/24/2023 3:08 [place] [address] Department of Pathology FINAL CYTOLOGY PAP REPORT Patient Name: SILVINA CAMARGO Accession No: [id number] Age Sex: 1985 38 Y F Pt Type: R KMGP Location: Account No: [id number] Collected: 12/23/2023 Med Rec No: [id number] Received: 12/24/2023 Attend Phys: HARRISON CALHOUN Completed: 12/24/2023 Perform Phys: HARRISON CALHOUN SPECIMEN ADEQUACY: Satisfactory for Evaluation. Endocervical cells/transformation zone component present. GENERAL CATEGORIZATION: Negative for Intraepithelial Lesion or Malignancy Lab Order#: [id number] Test Name Collected D&T Result HPV Type 16 12/23/2023 Not Detected HPV Type 18 12/23/2023 Not Detected HPVOH (Other types) 12/23/2023 Not Detected HPV Comment 12/23/2023 See below Test Comment: This is information only. See above for results. HPV other genotypes: 31,33,35,39,45,51,52,56,58,59,66,68 The Aureliano Claudia HPV Test is a qualitative in-vitro test for the detection of Human Papillomavirus that provides specific genotyping information for HPV Types 16 and 18, while concurrently detecting 12 other high-risk HPV types 31,33,35, 39,45,51,52,56,58,59,66,68 in a pooled result. The test utilizes amplification of target DNA by Polymerase Chain Reaction (PCR) and nucleic acid hybridization. SPECIMEN: THINPREP LIQUID BASE IMAGED DIAGNOSTIC, ENDOCERVICAL LMP: None given, Previous smear date: None given, Previous abnormal: No, Other2: Yes, Other3: Thin Prep, Other4: Endocervical CPT: Technical: 57706 X1 Case reviewed at [facility], [address] [place] [address] Cervical cytology is a screening test primarily for squamous cancers and precursors and has associated false negative and positive results. New technologies such as liquid based sampling may decrease but not eliminate all false negative results. Regular (generally annual) sampling and follow-up of unexplained clinical signs and symptoms are recommended to minimize false negative results. Screened By: NIMESH PALMA 12/24/2023 Page 1 of 1 Harrison Calhoun MEDICAL DEVICE SALES REPRESENTATIVE - CNM PATHOLOGY/CYTOLOGY OR DERABLES Final Result [facility] [address] [place] [address], [facility] [phone] from Last 3 Months or Most Recently Relevant to Health Maintenance Insurance [place] [employer] Care Teams Wrap Checker Relationship Specialty Start Date End Date Allison Horton APRN - POPEYE [address] [place] [address] PCP - General Certified Nurse Practitioner 03/04/23
--- OUTSIDE RECORDS SUMMARY | 2024-11-20 20:07 | XMS_ITS | Continuity of Care Document ---
Author Organization [facility] Address [address] [place] [address] Phone Care Team Providers Care Chain Testing Machine Operator Name Role Phone Alex Robertson PA-C Unavailable Unavailable Allergies, Adverse Reactions, Alerts Substance Reaction Status Criticality No Known Allergies Active No Inform ation Medications Medication Instructions Dosage Effective Dates (start - stop) Status Comments Mobic 15 mg tablet take 1 tablet by oral route every day - Active levothyroxine 100 mcg tablet - Active Ambien 10 mg tablet - Active Medrol (Daniel) 4 mg tablets in a dose pack take by Oral route as directed Not Available - No Longer Active Rosa Maria 0.15 mg-0.03 mg tablet - No Longer Active VYVANSE (unknown strength) Not Available - No Longer Active levothyroxine 88 mcg tablet - No Longer Active Procedures Procedure Date Shoulder Xray Complete Min Of 2 Views Ja AC Joints Xray Bilateral W Or WO Weighte d Distraction Office/outpatient visit,est, mod 2017 X-ray exam of ankle, complete 5 Office/outpatient visit,est, mod 2014 Walking Boot, Pneumatic And/or Vacuum Wi th Or With Foot Xray Complete Min 3 Views 15 Office/outpatient visit,new, mod 2014 Copay Payment Charge Advance Directives Directive Yes / No Effective Date File Name No Information Encounters Encounter Description Practice Location Reason(s) For Visit Diagnoses Date Provider Providers Copied on Encounter Office/outpat ient visit,[facility], [facility], [address] [place] [address], [id number], tel:[phone] [facility] shoulder (chief complaint) Pain in right shoulderStrain of right shoulder, initial encounter 8 Marcelo Johnson. [address], [place], [id number] , [place]. tel: [phone] Office/outpat ient visit,Pending sale to [facility], [address] [place] [address], [id number], [place] tel:[phone] [facility] ankle (chief complaint) Pain in left lower legModerate left ankle sprain, initial encounter 5 Jamaal Huerta. [address], [place], [id number] , [place]. tel:[phone] [facility], [address] [place] [address], [id number], tel:[phone] [facility] No Information 5 Jamaal Huerta. [address], [place], [id number] , [place]. tel:[phone] Referring Provider: Bradley Hinton, [address] [place], [address] . tel:[phone] Office/outpat ient visit,[facility], [address] [place] [address], [id number], [phone] [facility] foot (chief complaint) Pain In LimbFoot contusion 5 Jamaal Huerta. [address], [place], [id number] , [place]. tel:[phone] Family History Family Member Type Diagnosis Age At Onset Father Problem (finding) hypertension Mother Problem (finding) raised blood lipids Father Problem (finding) Thyroid disorder Immunizations Vaccine Date Status Comments Flu (split) (3 yrs or older) administered Source: Other Provider Payers Payer name Insurance type Covered constitution party ID Kristen CHINO (s) [id number] Social History Type Description Quantity Date Captured Comments Alcohol Use Details Unknown Caffeine Use Details Unknown Tobacco Use Status Never smoked tobacco 2017 Smoking Status Never smoker Non-Smoking Tobacco Use Details : No Details Available : No Details Available Sex Female Vital Signs Date / Time: Height Weight BMI Pulse Rate Blood Pressure Temperature Respiratory Rate Body Surface Area Head Circumference Head Circ. Percentile Wt./Madhu. Percentile BMI percentile Pulse Ox Inhaled Ox 5:22 PM 65.00 in 58.967 kg (130.00 lbs) 21.6 3 kg/m eter (2) Chief Complaint And Reason For Visit From encounter dated '06/17/2017 17:10'. shoulder (chief complaint) Reason For Referral Reason For Referral No Information Plan Of Treatment Date Type Action Status Future Order: Radiology Order AC Joints Xray Bilateral W Or WO Weighted Distraction (96416), Ordered on: Ordered Future Order: Radiology Order Sh oulder Xray Complete Min Of 2 Views ([id number]), Ordered on: Ordered Future Order: Radiology Order An kle Xray Complete Min 3 Views ([id number]), Ordered on: Ordered Future Order: Radiology Order Fo ot Xray Complete Min 3 Views ([id number]), Ordered on: Ordered History Of Present Illness Encounter Date Complaint History Of Prese nt Illness shoulder ankle foot Functional Status Date Functional Assessmen t No Information Instructions Date Instruction Additional Infor mation Patient was educated on the diagnosis and treatment plan. Related to Foot contusion Assessments Type Assessment Date assessment Pain in right shoulder 18 assessment Strain of right shoulder, initia l encounter Patient Care Teams Name Effective Dates (start - stop) Status Members No Information
--- OUTSIDE RECORDS SUMMARY | 2024-11-20 20:07 | XMS_ITS | Encounter Summary ---
Author Organization [facility] Address [address] [place] [address] Care Team Providers Care Director Executive Communications Name Role Phone Allison Horton UNCLAIMED PROPERTY MANAGER - GLASS OR MIRROR INSPECTOR Primary Care Provider Reason for Visit * Reason Comments Medication Refill Encounter Details Date Type Department Care Team (Late st Contact Info) Description 06/20/[address] [facility] [address] [place], [place] [id number] Silvana Rosas MD Medication Refill Social History Tobacco Use Types Packs/Day Years [...] on filedocumented in this encounter Care Teams Director Executive Communications Relationship Specialty Start Date End Date Allison Horton APRN - NP [address] [facility] [address] [place] [id number] PCP - General Certified Nurse Practitioner 03/04/23 documented as of this encounter
--- OUTSIDE RECORDS SUMMARY | 2024-11-20 20:07 | XMS_ITS | Patient Health Record ---
Author Organization [facility] Address [address] [place] [address] [place] [address] Care Team Providers Care Retail Merchandising Manager Name Role Phone Ana Maria Sutton M.D. Unavailable Unav ailable Reason For Referral No Information Medications Medication SIG (Take, Route, Frequency, Duration) Notes Start Date End Date Status Levothyroxine Sodium 88 MCG 30 Oral Daily TAKE 1 TABLET DAILY.-Med Status:Filled Rx, DrugStatus-NElke Cynthia 10/22/2013 Active Escitalopram Oxalate 20 MG 90 Oral Daily TAKE 1 TABLET DAILY-Med Status:Filled RxJosétatus-Elke Garcia Cynthia 08/06/2014 Active Ambien CR 12.5 MG 30 Oral Bedtime TAKE 1 TABLET AT BEDTIME.-Med Status:Filled Rx, DrugStatusElke Carreno- , 07/02/2013 Active Problems Problem Type SNOMED Code ICD Code Onset Dates Problem Status W/U Status Risk Notes Problem 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) Meningococcal () 2009 Active confirmed Miguel Problem Family history of malignant neoplasm of breast (970700008) Family history of malignant neoplasm of breast (V16.3) 2009 Active confirmed Miguel Problem Hypothyroidism (36338177) Hypothyroidism, unspecified (E03.9) 2013 Active confirmed Miguel Problem Anxiety disorder (672628902) Other specified anxiety disorders (F41.8) 2013 Active confirmed Miguel Problem Migraine without aura, not refractory (disorder) (515412379) Migraine, unspecified, not intractable, without status migrainosus (G43.909) 2016 Active confirmed Miguel Problem Insomnia (315018372) Insomnia, unspecified (G47.00) 2013 Active confirmed Miguel Problem Fibrocystic breast changes (00675626) Diffuse cystic mastopathy of unspecified breast (N60.19) 2016 Active confirmed Miguel Problem Palpitations (52095700) Palpitations (R00.2) 2013 Active confirmed Miguel Problem Vaccination given (589887718) Encounter for immunization (Z23) 2013 Active confirmed Miguel Problem Fetus or affected by incompetent cervix of mother (761.0) 2011 Resolved confirmed Miguel Problem Herpetic gingivostomatitis (38690775) Herpesviral gingivostomatitis and pharyngotonsillitis (B00.2) 2013 Resolved confirmed Miguel Problem Cardiac arrhythmia (038987407) Cardiac arrhythmia, unspecified (I49.9) 2013 Resolved confirmed Miguel Problem Syncope and collapse (443197767) Syncope and collapse (R55) 2013 Resolved confirmed Miguel Problem Abnormal weight gain (490339045) Abnormal weight gain (R63.5) 2013 Resolved confirmed Miguel Problem Adult health examination (695720043) Encounter for general adult medical examination without abnormal findings (Z00.00) 2013 Resolved confirmed Miguel Problem Patient currently (93700686) state, incidental (Z33.1) 2013 Resolved confirmed Miguel Plan Of Treatment No Information Insurance Providers Payer Name Payer Address Payer Phone Subscriber Number Group Number Insured Name Patient Relationship to Insured Coverage Start Date Coverage End Date [employer] [place] [address] [place] [address] [id number] Silvina Camargo Self - patient is the insured Medical (General) History Surgical History Surgery Date(Month/Year) Catheter Ablation Of Arrhythmogenic Focu s 02/12/2011 Tonsillectomy With Adenoidectomy 010
[2024-11-20 20:12] LABS: Thyroid Stimulating Hormone 0.519 uIU/mL (0.465-4.680)
--- NOTE | 2024-11-20 21:52 | PC.NURSE ---
This RN spoke to Dot QUIROGA from [place] [facility] and gave update on pt status.
[2024-11-21 00:01] VITALS: BP 122/78; PULSE 91; RESP 19
[2024-11-21 01:14] VITALS: BP 122/78; PULSE 85; RESP 14; TEMP 36.9; O2SAT 100
== END 2024-11-21 00:50 | disposition home or self-care (01) ==
PROVIDERS: Emergency Provider Student in an Organized Health Care Education/Training Program
DX: F12.929 Cannabis use, unspecified with intoxication, unspecified (principal); E03.9 Hypothyroidism, unspecified; R00.0 Tachycardia, unspecified; R94.31 Abnormal electrocardiogram [ECG] [EKG]
CPT/HCPCS: 36415; 80053; 80143; 80179; 80307; 81003; 81025; 82077; 84443; 85025; 93005; 96361; 96374; 99284; J2405; J7120